=== PATIENT | female | born 1950 | race Caucasian/White ===

== ENCOUNTER 2024-07-15 09:30 | Outpatient (RCR) | payer MEDICARE, OTHER, SELFPAY | END 2024-07-29 14:50 | disposition home or self-care (01) | LOC: ROT 09:30 | PROVIDERS: ATTENDING PHYSICIAN Family Medicine | DX: M79.642 Pain in left hand (principal); Z73.6 Limitation of activities due to disability | CPT/HCPCS: 97018; 97535; 97760; 97763 ==